=== PATIENT | male | born 1990 | race American Indian/Alaskan Native ===

== ENCOUNTER 2018-11-05 22:11 | Emergency (ER) | payer SELFPAY ==
--- NOTE | 2018-11-05 23:41 | XRay Report ---
RIGHT ANKLE 2 VIEWS INDICATION / CLINICAL INFORMATION: Slid into base playing baseball. COMPARISON: None available. FINDINGS: Mild diffuse soft tissue edema. No other significant abnormality. Signer Name: Amilcar Topete MD FACJuan Antonio Signed: 11/05/2018 11:37 PM Workstation Name: [id number]
--- NOTE | 2018-11-06 00:43 | Emergency Department Report ---
ED Lower Extremity HPI - General Chief Complaint: Extremity Injury, Lower Stated Complaint: RIGHT ANKLE PAIN Time Seen by Provider: 11/05/18 23:54 Source: patient Mode of arrival: Ambulatory Limitations: No Limitations - History of Present Illness Initial Comments: Patient is a 28-year-old male presents to the emergency room with complaints of right ankle pain that began 2 days ago. Patient states he was playing baseball and slid into base. He had an eversion injury of his right ankle. He states he has been ambulatory with some discomfort. The patient he denies any past medical history or allergies medications. Has never injured this ankle before. - Related Data Previous Rx's Medication Instructions Recorded Last Taken Type Ibuprofen [Motrin 800 MG tab] 800 mg PO Q8HR PRN #20 tablet 11/06/18 Unknown Rx Allergies Allergy/AdvReac Type Severity Reaction Status Date / Time No Known Allergies Allergy Verified 11/05/18 22:17 ED Review of Systems ROS: Stated complaint: RIGHT ANKLE PAIN Other details as noted in HPI Comment: All other systems reviewed and negative ED Past Medical Hx - Past Medical History Previous Medical History?: No - Surgical History Past Surgical History?: No - Social History Smoking Status: Never Smoker - Medications Home Medications: Home Medications Medication Instructions Recorded Confirmed Last Taken Type Ibuprofen [Motrin 800 MG tab] 800 mg PO Q8HR PRN #20 tablet 11/06/18 Unknown Rx ED Physical Exam - General Limitations: No Limitations General appearance: alert, in no apparent distress - Head Head exam: Present: atraumatic, normocephalic - Eye Eye exam: Present: normal appearance - ENT ENT exam: Present: mucous membranes moist - Extremities Exam Extremities exam: Present: other (edema present to the right ankle, ecchymosis to the anterior portion of the right ankle, no obvious deformity, FROM of the right ankle with some discomfort upon internal rotation, 2+ distal pulses, sensation intact, no obvious joint laxity) - Neurological Exam Neurological exam: Present: alert, oriented X3 - Psychiatric Psychiatric exam: Present: normal affect, normal mood - Skin Skin exam: Present: warm, dry, intact ED Course Vital Signs 11/05/18 11/05/18 11/06/18 22:15 23:12 01:19 Temperature 98.4 F 98.4 F 98.2 F Pulse Rate 86 86 78 Respiratory 18 16 16 Rate Blood Pressure 150/88 150/88 Blood Pressure 131/84 [Left] O2 Sat by Pulse 99 99 98 Oximetry ED Lower Extremity MDM - Radiology Data Radiology results: report reviewed Date of Service: 11/05/18 Procedure(s): XR ankle 2V RT Accession Number(s): [id number] cc: BALDEMAR LANIER NP Fluoro Time In Minutes: RIGHT ANKLE 2 VIEWS INDICATION / CLINICAL INFORMATION: Slid into base playing baseball. COMPARISON: None available. FINDINGS: Mild diffuse soft tissue edema. No other significant abnormality. Signer Name: Amilcar Topete MD FACR Signed: 11/05/2018 11:37 PM Workstation Name: [id number] Transcribed By: MS Dictated By: Amilcar Topete MD Electronically Authenticated By: Amilcar Topete MD Signed Date/Time: 11/05/18 0577 - Medical Decision Making Patient is a 28-year-old male presents to the emergency room with complaints of right ankle pain that began 2 days ago. Patient states he was playing baseball and slid into base. He had an eversion injury of his right ankle. He states he has been ambulatory with some discomfort. The patient he denies any past medical history or allergies medications. Has never injured this ankle before. VSS. on exam: edema present to the right ankle, ecchymosis to the anterior portion of the right ankle, no obvious deformity, FROM of the right ankle with some discomfort upon internal rotation, 2+ distal pulses, sensation intact, no obvious joint laxity. XR of the right ankle: Mild diffuse soft tissue edema. No other significant abnormality. pt placed in ankle stirrup splint for ankle sprain. discussed RICE therapy. given prescription for anti-inflammatory. advised to please take medication as prescribed. Please follow-up with Dr. Ford, orthopedic in the next 2-3 days. May use ice, rest, elevation. Return to the emergency room for any new or worsening symptoms. - Differential Diagnosis strain, sprain, fx, dislocation, tendon/ligament injury Critical care attestation.: If time is entered above; I have spent that time in minutes in the direct care of this critically ill patient, excluding procedure time. ED Disposition Clinical Impression: Right ankle pain Qualifiers: Chronicity: acute Qualified Code(s): M25.571 - Pain in right ankle and joints of right foot Disposition: DC-01 TO HOME OR SELFCARE Is pt being admited?: No Does the pt Need Aspirin: No Condition: Stable Instructions: Ankle Sprain (ED), Ankle Stirrup Splint (ED), RICE Therapy (ED) Additional Instructions: Please take medication as prescribed. Please follow-up with Dr. Ford, orthopedic in the next 2-3 days. May use ice, rest, elevation. Return to the emergency room for any new or worsening symptoms. Prescriptions: Ibuprofen [Motrin 800 MG tab] 800 mg PO Q8HR PRN #20 tablet PRN Reason: pain [facility] - 2-3 Days WILFREDO FORD MD [Staff Physician] - 2-3 Days Forms: Work/School Release Form(ED) Time of Disposition: 00:45 Print Language: PORTUGUESE
[2018-11-06 01:21] VITALS: BP 131/84
== END 2018-11-06 01:19 | disposition home or self-care (01) ==
LOC: ED 22:11
DX: M25.571 Pain in right ankle and joints of right foot (principal)

== ENCOUNTER 2019-06-14 19:29 | Emergency (ER) | payer SELFPAY ==
[2019-06-14 19:41] VITALS: BP 140/84
--- NOTE | 2019-06-14 20:35 | Emergency Department Report ---
Abscess Boil HPI - HPI Chief Complaint: Skin/Abscess/Foreign Body Stated Complaint: ABSCESS ON CHIN Time Seen by Provider: 06/14/19 20:28 Duration: >1 Week Location: Head (left chin) Severity: Mild History: No Fever, No Pain, No Purulent Drainage, No Numbness, No Foreign Body, No Previous History, No Insect Bite HPI: This is a 29 y.o. M. that presents to the ER with abscess to left side of chin for 1.5 weeks. Patient states it was large and painful initally. He drained abscess a few days ago which improved swelling. States wound is slow healing. He applied peroxide to site with minimal changes. Denies fever, chills, swelling, numbness or tingling. Home Medications: Previous Rx's Medication Instructions Recorded Last Taken Type Ibuprofen [Motrin 800 MG tab] 800 mg PO Q8HR PRN #20 tablet 11/06/18 Unknown Rx Ibuprofen [Motrin 800 MG tab] 800 mg PO Q8HR PRN #10 tablet 04/06/19 Unknown Rx methOCARBAMOL [Robaxin TAB] 500 mg PO Q6H PRN #14 tablet 04/06/19 Unknown Rx traMADoL [Ultram] 50 mg PO Q6HR PRN #12 tablet 04/06/19 Unknown Rx Clindamycin Phosphate [Clindamycin 1 applicatio TP DAILY 5 Days #1 06/14/19 Unknown Rx 1% TOPICAL FOAM] foam Allergies/Adverse Reactions: Allergies Allergy/AdvReac Type Severity Reaction Status Date / Time No Known Allergies Allergy Verified 11/05/18 22:17 ED Review of Systems ROS: Stated complaint: ABSCESS ON CHIN Other details as noted in HPI Constitutional: denies: chills, fever Respiratory: denies: cough, shortness of breath, wheezing Cardiovascular: denies: chest pain, palpitations Gastrointestinal: denies: abdominal pain, nausea, diarrhea Skin: lesions (abscess to left chin). denies: rash Neurological: denies: headache, weakness, paresthesias Psychiatric: denies: anxiety, depression ED Past Medical Hx - Past Medical History Previous Medical History?: No - Surgical History Past Surgical History?: No - Social History Smoking Status: Never Smoker Substance Use Type: Marijuana - Medications Home Medications: Home Medications Medication Instructions Recorded Confirmed Last Taken Type Ibuprofen [Motrin 800 MG tab] 800 mg PO Q8HR PRN #20 tablet 11/06/18 Unknown Rx Ibuprofen [Motrin 800 MG tab] 800 mg PO Q8HR PRN #10 tablet 04/06/19 Unknown Rx methOCARBAMOL [Robaxin TAB] 500 mg PO Q6H PRN #14 tablet 04/06/19 Unknown Rx traMADoL [Ultram] 50 mg PO Q6HR PRN #12 tablet 04/06/19 Unknown Rx Clindamycin Phosphate [Clindamycin 1 applicatio TP DAILY 5 Days #1 06/14/19 Unknown Rx 1% TOPICAL FOAM] foam ED Abscess Boil Physical Exam - Exam General: Vital signs noted. No distress. Alert and acting appropriately. Front/Back of Body, Lg (Color): 1 - 1 cm nonfluctuant nodule to left mandible, ttp, erythema, no drainage, Size: 1 cm Exam: Yes Tenderness, Yes Surrounding Cellulites/Erythema, Yes Normal Neurologic Exam, Yes Normal Circulation, No Fluctuance, No Lymphangitis, No Crepitation, No Heart Murmur ED Course Vital Signs 06/14/19 19:40 Temperature 98.6 F Pulse Rate 77 Respiratory 20 Rate Blood Pressure 140/84 O2 Sat by Pulse 100 Oximetry Critical care attestation.: If time is entered above; I have spent that time in minutes in the direct care of this critically ill patient, excluding procedure time. ED Medical Decision Making - Medical Decision Making 29-year-old male that presents to the emergency room with a painful bump to face for 1-1/2 weeks. Vitals are stable and patient in no acute distress. There is a 1 cm nonfluctuant area to left mandible, nontender, mild erythema. Wound has drained and does not require I&D. Labs are deferred at this time. Patient started on topical antibiotics. Given referral to PCP for continued care. Cecilia ent discharged home stable with strict return instructions. ED Disposition Clinical Impression: Abscess of face Disposition: DC- TO HOME OR SELFCARE Is pt being admited?: No Condition: Stable Instructions: Abscess (ED) Prescriptions: Clindamycin Phosphate [Clindamycin 1% TOPICAL FOAM] 1 applicatio TP DAILY 5 Days #1 foam Referrals: [facility] [place]Note 3[facility] [Outside] - 3-5 Days [facility] [Outside] - 3-5 Days [facility] [address] [Outside] - 3-5 Days Time of Disposition: 20:47
== END 2019-06-14 21:30 | disposition home or self-care (01) ==
LOC: ED 19:29
DX: L02.01 Cutaneous abscess of face (principal); F12.10 Cannabis abuse, uncomplicated
CPT/HCPCS: 99282